=== PATIENT | male | born 1945 ===

== ENCOUNTER 2022-07-20 07:45 | Inpatient (IN) | payer OTHER ==
[~2022-07-20] VITALS: Ht 152.4 cm; Wt 47.6 kg
[2022-07-25] MEDS ORDERED: BAYER THERAPY325 MG (08:35)
[2022-07-25] MEDS ORDERED: NAPROXEN SODIU550 MG (08:35)
[2022-07-27] MEDS ORDERED: PERCOCET 5-3251 EACH PO (14:48)
[2022-07-27] MEDS ORDERED: ELIQUIS2.5 MG PO (14:48)
[2022-07-27] MEDS ORDERED: DUI500 PO (14:48)
[2022-08-03] MEDS ORDERED: NIFEDIPINE ER30 M1 PO (14:46)
[2022-08-03] MEDS ORDERED: TOPROL XL25 M1 PO (14:46)
[2022-08-03] MEDS ORDERED: ELIQUIS2.5 MG PO (14:46)
== END 2022-08-02 17:38 | DRG 470 ==
LOC: O/R 07-25 06:00 → SURG 07-25 06:00
PROVIDERS: ADMIT Orthopaedic Surgery; ATTEND Orthopaedic Surgery
PROC: 0SRD0J9 Replacement of Left Knee Joint with Synthetic Substitute, Cemented, Open Approach (ICD-10-PCS; principal; 2022-07-25 07:00)
PROC: BW4GZZZ Ultrasonography of Pelvic Region (ICD-10-PCS; 2022-07-28)
PROC: 30233N1 Transfusion of Nonautologous Red Blood Cells into Peripheral Vein, Percutaneous Approach (ICD-10-PCS; 2022-07-28)
DX: M17.12 Unilateral primary osteoarthritis, left knee (principal); D62 Acute posthemorrhagic anemia; R50.82 Postprocedural fever; R33.8 Other retention of urine; I48.91 Unspecified atrial fibrillation; I10 Essential (primary) hypertension; F10.20 Alcohol dependence, uncomplicated; F14.10 Cocaine abuse, uncomplicated

== ENCOUNTER 2022-09-01 14:10 | Inpatient (IN) | payer OTHER ==
[~2022-09-01] VITALS: Ht 157.5 cm; Wt 47.6 kg
[~2022-09-01 14:10] MED LIST: BAYER THERAPY325 MG; DUI500 PO; ELIQUIS2.5 MG PO; NAPROXEN SODIU550 MG; NIFEDIPINE ER30 M1 PO; PERCOCET 5-3251 EACH PO; TOPROL XL25 M1 PO
[2022-09-08] MEDS ORDERED: ELIQUIS2.5 MG PO (08:05)
[2022-09-08] MEDS ORDERED: CEFADROXIL500 MG PO (08:05)
[2022-09-08] MEDS ORDERED: PERCOCET 5-3251 EACH PO (08:05)
[2022-09-08] MEDS ORDERED: TAMS0.4C PO (08:20)
[2022-09-08] MEDS ORDERED: NIFEDIPINE ER30 M1 PO (08:20)
[2022-09-08] MEDS ORDERED: INTEGRA PLUS C1 EACH PO (08:22)
== END 2022-09-08 12:37 | DRG 486 ==
LOC: ER 14:10 → SURG 20:13 → SURH 20:13
PROVIDERS: Orthopaedic Surgery; ADMIT Internal Medicine; ATTEND Internal Medicine
PROC: B44GZZZ Ultrasonography of Left Lower Extremity Arteries (ICD-10-PCS; 2022-09-01)
PROC: B54CZZZ Ultrasonography of Left Lower Extremity Veins (ICD-10-PCS; 2022-09-01)
PROC: 0SWDXJZ Revision of Synthetic Substitute in Left Knee Joint, External Approach (ICD-10-PCS; 2022-09-05)
PROC: 0SND4ZZ Release Left Knee Joint, Percutaneous Endoscopic Approach (ICD-10-PCS; principal; 2022-09-05 20:00)
DX: T84.53XA Infection and inflammatory reaction due to internal right knee prosthesis, initial encounter (principal); D62 Acute posthemorrhagic anemia; M24.562 Contracture, left knee; M23.8X2 Other internal derangements of left knee; F10.20 Alcohol dependence, uncomplicated